=== PATIENT | female | born 1965 | race Caucasian/White ===

== ENCOUNTER → 2023-07-27 08:34 | Outpatient (BNVA) | payer MEDICAID, SELFPAY | PROVIDERS: PCP Nurse Practitioner Family; Referring Provider Anesthesiology Pain Medicine; Visit Provider Psychiatry & Neurology Neurology | DX: G43.909 Migraine, unspecified, not intractable, without status migrainosus (principal) | CPT/HCPCS: 99203 ==

== ENCOUNTER 2023-08-02 08:09 | Outpatient (CLI) | payer MEDICAID, SELFPAY ==
--- NOTE | 2023-08-02 08:45 | MR_ITS ---
WS: [id number] MRI HEAD WITH CONTRAST TECHNIQUE: Sagittal T1, T2 axial, T2 axial FLAIR, axial susceptibility weighted imaging, axial diffus ion weighted images, and coronal T2 images were obtained. Pre and post-T1 axial and post T1 coronal i mages. ADC and FSPGR images. CLINICAL INFORMATION: G43.909 - Migraine, unspecified, not intractable, without... COMPARISON: None. FINDINGS: No evidence of restricted diffusion to suggest acute ischemia. Ventricular system and basal cisterns are patent. Mild small vessel changes. Mild parenchymal volume loss. Normal posterior fossa. Normal v ascular flow voids at the skull base. No extra-axial fluid collections. No evidence of mass or mass e ffect. Paranasal sinuses are well aerated. Normal posterior nasopharynx. Retention cyst RIGHT maxilla ry sinus measuring 1.9 x 1.6 cm. Mastoid air cells are well aerated. Mild small vessel changes in the [place]. No hemosiderin on susceptibility-weighted images. Normal optic chiasm and pituitary infundibulum. Temporal lobes and hippocampal formations are normal in appearanc e. Incidental benign venous angioma RIGHT frontal parietal junction at the vertex. Otherwise no abnor mal gadolinium enhancement. Normal dural venous sinuses. Incidental benign hyperostosis frontalis IMPRESSION: 1. No evidence of restricted diffusion to suggest acute ischemia. 2. Mild small vessel changes. Mild parenchymal volume loss. 3. No hemosiderin susceptibility-weighted images. 4. 1.9 x 1.6 cm retention cyst RIGHT maxillary sinus. 5. No abnormal gadolinium enhancement. 6. No other suspicious findings.
[2023-08-02] MEDS: gadobenate dimeglumine 20 mL vial IV (09:48)
== END 2023-08-02 08:10 | disposition home or self-care (01) ==
PROVIDERS: PCP Nurse Practitioner Family; Visit Provider Psychiatry & Neurology Neurology
DX: G43.909 Migraine, unspecified, not intractable, without status migrainosus (principal)
CPT/HCPCS: 70553; A9577

== ENCOUNTER 2023-08-22 08:02 | Outpatient (CLI) | payer MEDICAID, SELFPAY ==
--- NOTE | 2023-08-22 08:30 | FL_ITS ---
WS: [id number] LUMBAR PUNCTURE UNDER FLUOROSCOPY: OBTAIN CSF FOR ANALYSIS HISTORY: G43.909 - Migraine, unspecified, not intractable, without... COMPARISON: None available. FLUOROSCOPY TIME: 0min [id number] # of spot films: 1 Procedure, complications, and risk and benefits explained to the patient. Consent was obtained. Recen t laboratory work and medication are reviewed prior to procedure. Skin over the lumbar is cleansed with ChloraPrep and anesthetized with 1% buffered lidocaine. Access into the thecal sac is achieved. CSF is removed in a sterile manner and placed in the sterile tubes. Very little flow of CSF during the examination. Despite multiple attempts at achieving additional flu id only a small amount was retrieved. Approximately 6 ml is removed without difficulty. Opening press ures are not elevated. No complications are encountered. CSF this into the laboratory for analysis as requested. IMPRESSION: 1. No elevated opening pressures. 2. Very little CSF was removed. After 6 cc the flow of CSF stopped despite additional maneuvers attem pting to collect more CSF. CSF was clear. Specimen will be sent for analysis as requested.
[2023-08-22 10:58] LABS: CSF Mononuclear # 0.001 10^3/uL (50-90); Mononuclear WBC CSF % 50 % (50-90); Polynuclear Cells ,CSF # 0.001 10^3/uL (0-10); Polynuclear WBC CSF % 50 % (0-10); Red Blood Cell CSF 0 10^3/uL (0-0); White Blood Cell CSF 2 /uL (0-5)
[2023-08-22 11:05] LABS: Glucose CSF 76 mg/dL (40-70); Total Protein CSF 56 mg/dL (15-45)
[2023-08-22 11:09] LABS: Appearance CSF CLEAR (CLEAR); Color CSF COLORLESS (COLORLESS); Pathology Referral Yes
[2023-08-26 00:10] LABS: VDRL on CSF NON-REACTIVE
== END 2023-08-22 08:03 | disposition home or self-care (01) ==
LOC: RAD 08:02
PROVIDERS: PCP Nurse Practitioner Family; Visit Provider Psychiatry & Neurology Neurology
DX: G43.909 Migraine, unspecified, not intractable, without status migrainosus (principal)
CPT/HCPCS: 62328; 80503; 82945; 84157; 86592; 87070; 87075; 87205; 87327; 89050

== ENCOUNTER → 2023-09-27 14:40 | Outpatient (BNVA) | payer MEDICAID, SELFPAY | PROVIDERS: PCP Nurse Practitioner Family; Visit Provider Psychiatry & Neurology Neurology | DX: R51.9 Headache, unspecified (principal) | CPT/HCPCS: 99212 ==

== ENCOUNTER → 2024-02-07 13:24 | Outpatient (BNVA) | payer MEDICAID, SELFPAY | PROVIDERS: PCP Nurse Practitioner Family; Visit Provider Psychiatry & Neurology Neurology | DX: R51.9 Headache, unspecified (principal) | CPT/HCPCS: 99212 ==

== ENCOUNTER → 2025-03-04 14:46 | Outpatient (BNVA) | payer MEDICARE, MEDICAID, SELFPAY | PROVIDERS: PCP Nurse Practitioner Family; Visit Provider Psychiatry & Neurology Neurology | DX: G43.011 Migraine without aura, intractable, with status migrainosus (principal) | CPT/HCPCS: 99212 ==